=== PATIENT | female | born 1950 | race Caucasian/White ===

== ENCOUNTER → 2023-01-30 | Outpatient (CLI) | payer BC, SELFPAY ==
[2023-01-30 08:52] VITALS: PULSE 100; PULSE 81; PULSE 82; PULSE 90; PULSE 93; PULSE 94; PULSE 95; PULSE 99; O2SAT 78; O2SAT 88; O2SAT 90; O2SAT 91; O2SAT 92; O2SAT 96
--- NOTE | 2023-01-30 09:05 | CPS ---
Patient was 78% on room air while sitting. Placed patient on 2 lpm nasal cannula, SpO2 increased to 90%. After several minutes SpO2 never went greater than 90-91% while sitting so turned flow up to 3 lpm for walking. SpO2 95% on 3 lpm before starting testing. Patient was able to walk over 1000 ft during the 6 minutes maintaining an SpO2 >89% until right when the test ended. SpO2 87-88% at the end of the 6 minute walking on 3 lpm O2.
--- NOTE | 2023-02-01 07:30 | WT_ITS ---
PSN 6 Minute Walk Test 6 Minute Walk Test 6 Minute Walk Test: 6 Minute Walk Test PSN:6-Minute Walk Test Start: 01/30/23 08:52 Freq: Status: Active Protocol: [id number] Document 01/30/23 08:52 RUBEN (Rec: 01/30/23 09:09 RUBEN [id number]) 6 Minute Walk Test Date Performed 01/30/23 Time Performed 08:30 Height 5 ft 4 in Weight: 48.081 kg Weight in Pounds 106.[address]: Clinton Rodríguez Assistive device used: None Pre-test Oxygen Delivery Method Room Air Pulse Ox 78 Pulse Rate (60-100) 82 Dyspnea Jerri Scale (0-10) 0 Exertion Jerri Scale (6-20) 6 1st minute Oxygen Flow Rate (L/min) 3 Oxygen Delivery Method Nasal Cannula Pulse Ox 92 Pulse Rate (60-100) 90 2nd minute Oxygen Flow Rate (L/min) 3 Oxygen Delivery Method Nasal Cannula Pulse Ox 90 Pulse Rate (60-100) 93 3rd minute Oxygen Flow Rate (L/min) 3 Oxygen Delivery Method Nasal Cannula Pulse Ox 90 Pulse Rate (60-100) 94 4th minute Oxygen Flow Rate (L/min) 3 Oxygen Delivery Method Nasal Cannula Pulse Ox 90 Pulse Rate (60-100) 95 5th minute Oxygen Flow Rate (L/min) 3 Oxygen Delivery Method Nasal Cannula Pulse Ox 91 Pulse Rate (60-100) 99 6th minute Oxygen Flow Rate (L/min) 3 Oxygen Delivery Method Nasal Cannula Pulse Ox 88 Pulse Rate (60-100) 100 Dyspnea Jerri Scale (0-10) 3 Exertion Jerri Scale (6-20) 13 Post-test Oxygen Flow Rate (L/min) 3 Oxygen Delivery Method Nasal Cannula Pulse Ox 96 Pulse Rate (60-100) 81 Full Laps Walked 18 Partial Lap, Number of Tiles Walked 16 Total Distance Walked (ft) 1078 01/30/23 09:05 Cardiopulmonary Services by Jackelin Fields Patient was 78% on room air while sitting. Placed patient on 2 lpm nasal cannula, SpO2 increased to 90%. After several minutes SpO2 never went greater t cottrell 90-91% while sitting so turned flow up to 3 lpm for walking. SpO2 95% on 3 lpm before starting testing. Patient was able to walk over 1000 ft during the 6 minutes maintaining an SpO2 >89% until right when the test ended. SpO2 87-88% at the end of the 6 minute walking on 3 lpm O2. Initialized on 01/30/23 09:05 - END OF NOTE Interpretation Interpretation: The patient was noted to be 78% on room air at rest. The patient was placed on 2 L/min with an improvement to 90% at rest. However, with minimal exertion, patient had to be placed on 3 L nasal cannula to achieve a saturation of 95%. Patient then started ambulating and was able to travel 10 78 feet over the course of 6 minutes with no assistive devices or breaks. Recommendations Recommendations: The patient requires 2 L/min at rest and should be increased up to at least 3 L/min with any exertion.
== END | disposition home or self-care (01) ==
PROVIDERS: PCP Family Medicine; Referring Provider Internal Medicine Critical Care Medicine; Visit Provider Internal Medicine Critical Care Medicine
DX: R06.09 Other forms of dyspnea (principal)
CPT/HCPCS: 94618

== ENCOUNTER → 2023-02-01 | Outpatient (CLI) | payer MEDICARE, SELFPAY ==
--- NOTE | 2023-02-04 08:26 | PFT ---
INTRODUCTION: The patient is a 72-year-old female who presents for pulmonary function studies secondary to a diagnosis of dyspnea. Respiratory therapy reported good patient effort. Bronchodilators were used during testing. INTERPRETATION: Forced expiration spirometry demonstrates the presence of a severe large airways obstructive ventilatory defect. There was no significant response to aerosolized bronchodilators. Spirograms are of good quality but do not plateau indicating slow emptying of the lungs. Body plethysmography was performed and revealed an elevated TLC and RV, indicative of underlying hyperinflation and air trapping. Diffusing capacity by single breath CO was reduced to 41% of predicted. IMPRESSION: Irreversible severe large airways obstructive ventilatory defect with associated hyperinflation, air trapping and symmetric reduction in diffusing capacity.
== END | disposition home or self-care (01) ==
LOC: PSN 10:58
PROVIDERS: PCP Family Medicine; Referring Provider Internal Medicine Critical Care Medicine; Visit Provider Internal Medicine Critical Care Medicine
DX: R06.09 Other forms of dyspnea (principal)
CPT/HCPCS: 94060; 94726; 94729

== ENCOUNTER → 2023-02-09 | Outpatient (CLI) | payer MEDICARE, SELFPAY ==
--- NOTE | 2023-02-09 08:40 | CT_ITS ---
STUDY: LOW DOSE CT LUNG CANCER SCREENING REASON FOR EXAM: Female, 72 years old. Screening RADIATION DOSAGE (If Supplied By Facility): CTDIvol = ( 2.01 ) mGy, DLP = ( 75.75 ) mGycm TECHNIQUE: No contrast was administered. Low dose technique was utilized (average mAS-38 and kVp 120). 1.25 mm axial source images with a slice interval of 1.25-mm were reconstructed in lung windows. 2.5 mm axial source images with a slice interval of 2.5-mm were reconstructed in lung windows. 5.0 mm axial source images with a slice interval of 5.0-mm were reconstructed in soft tissue windows. COMPARISON: None. Emphysema: Moderate bilateral apical scarring. Mild emphysema. No noncalcified nodule or mass. Endobronchial lesion: None Aorta: Calcified plaque in the aortic arch but no aortic aneurysm. CORONARY ARTERIES: Coronary artery calcification is seen. Heart: No cardiomegaly. Pulmonary artery: Normal Mediastinal nodes: Prominent precarinal lymph node, likely reactive Other chest and abdominal findings: None CT/Low Dose CT Lung Screening IMPRESSION: Lung-RADS category 1 - Continue annual screening with LDCT in 12 months. IMPORTANT NOTES FOR USE: ACR Lung-RADS Version 1.1 Assessment Categories Release Date: 2018 Category: Coded 0-4 bases on nodule(s) with highest degree of suspicion. Negative screen is defined as categories 1 and 2; a positive screen is defined as categories 3 and 4. Category 3 and 4A nodules that are unchanged on interval CT should be coded as category 2, and individuals returned to screening in 12 months. Category 4X: Category 3 or 4 nodules with additional imaging findings that increase the suspicion of lung cancer, such as spiculation, GGN that doubles in size in 1 year, enlarged lymph notes, etc. Category Modifiers: S (significant finding unrelated to lung cancer) Electronically Signed: Guy Webber MD at 22:36 EST ,
== END | disposition home or self-care (01) ==
LOC: CT 08:35
PROVIDERS: PCP Family Medicine; Referring Provider Internal Medicine Critical Care Medicine; Visit Provider Internal Medicine Critical Care Medicine
DX: Z12.2 Encounter for screening for malignant neoplasm of respiratory organs (principal); F17.210 Nicotine dependence, cigarettes, uncomplicated
CPT/HCPCS: 71271

== ENCOUNTER → 2023-04-29 | Outpatient (CLI) | payer MEDICARE, SELFPAY ==
[2023-04-29 16:30] LABS: Rheumatoid Factor 24.6 IU/mL (<15)
[2023-05-01 13:08] LABS: Anti-Centromere B Ab <0.2 AI (0.0-0.9); Anti-Chromatin <0.2 AI (0.0-0.9); Anti-Jo <0.2 AI (0.0-0.9); Anti-Scleroderma-70 AB <0.2 AI (0.0-0.9); Anti-dsDNA Ab 1 IU/mL (0-9); RNP Ab <0.2 AI (0.0-0.9); SJOGREN'S Anti-SS-A test < 0.2 AI (0.0-0.9); SJOGREN'S Anti-SS-B test < 0.2 AI (0.0-0.9); Smith Ab <0.2 AI (0.0-0.9)
[2023-05-01 15:08] LABS: CCP IgG Antibodies 6 units (0-19); Cytoplasmic Ab (C-ANCA) <1:20 titer (Neg:<1:20); Perinuclear Ab (P-ANCA) <1:20 titer (Neg:<1:20)
== END | disposition home or self-care (01) ==
LOC: PAVLAB 14:45
PROVIDERS: PCP Family Medicine; Referring Provider Nurse Practitioner Acute Care; Visit Provider Nurse Practitioner Acute Care
DX: I27.20 Pulmonary hypertension, unspecified (principal)
CPT/HCPCS: 36415; 86200; 86225; 86235; 86256; 86431

== ENCOUNTER → 2023-09-11 | Outpatient (CLI) | payer MEDICARE, SELFPAY ==
--- NOTE | 2023-09-11 09:52 | ECHOL_ITS ---
Reason For Study: PHTN Procedure This was a limited 2D transthoracic echocardiogram. Exam performed in department. Left Ventricle Normal LV size. The estimated ejection fraction is 65 %. No regional wall motion abnormalities noted. Right Ventricle Normal RV size. Normal systolic function. Atria Normal left atrium. Normal right atrium. Mitral Valve Normal mitral valve. Tricuspid Valve Normal tricuspid valve. Moderate (2+) tricuspid valve insufficiency. Pulmonary artery systolic pressure is 55 mmHg. Aortic Valve Trisinus/trileaflet aortic valve. Pulmonic Valve Normal pulmonic valve. Great Vessels Normal aortic root. The pulmonary artery is normal size. Normal inferior vena cava. Pericardium/Pleural No pericardial effusion. MMode/2D Measurements & Calculations LVIDd: 4.4 cm IVSd: 0.77 cm LVAd ap4: 18.6 cm2 LVIDs: 2.8 cm LVPWd: 0.78 cm LVLd ap4: 5.8 cm FS: 36.0 % EDV(MOD-sp4): 49.3 ml EDV(sp4-el): 50.8 ml LVAs ap4: 9.4 cm2 LVLs ap4: 4.4 cm ESV(MOD-sp4): 16.7 ml ESV(sp4-el): 16.9 ml EF(MOD-sp4): 66.1 % EF(sp4-el): 66.8 % SV(MOD-sp4): 32.6 ml SV(sp4-el): 33.9 ml Doppler Measurements & Calculations PA V2 max: 97.6 cm/sec TR max kathy: 356.0 cm/sec TR max P.7 mmHg ECHO/Echo, Limited Study Interpretation Summary Normal LV size. The estimated ejection fraction is 65 %. Moderate (2+) tricuspid valve insufficiency. Pulmonary artery systolic pressure is 55 mmHg. Ordering Physician: Clinton Rodríguez Referring Physician: Jessica Angelo Performed By: Erica Huerta RVT, RDCS and Student
== END | disposition home or self-care (01) ==
LOC: CVS 09:51
PROVIDERS: PCP Family Medicine; Visit Provider Internal Medicine Critical Care Medicine
DX: I27.20 Pulmonary hypertension, unspecified (principal)
CPT/HCPCS: 93308

== ENCOUNTER → 2024-02-19 | Outpatient (CLI) | payer MEDICARE, SELFPAY ==
--- NOTE | 2024-02-19 08:01 | CT_ITS ---
EXAM: CT CHEST, LUNG CANCER SCREENING WITHOUT INTRAVENOUS CONTRAST CLINICAL INDICATION: smoker TECHNIQUE: Helically acquired images were obtained of the chest without intravenous contrast using low dose (LDCT) lung cancer screening protocol. This CT exam was performed using one or more of the following dose reduction techniques: automated exposure control, adjustment of the mA and/or kV according to patient size, and/or use of iterative reconstruction technique. COMPARISON: CT Lung Cancer Screening dated 02/10/2023 FINDINGS: LUNGS AND PLEURAL SPACES: Interval development of right middle lobe atelectasis with air bronchograms outlining an element of diffuse bronchiectasis. No evidence of central endobronchial mass lesion. The diffuse centrilobular emphysematous changes of the lungs and a post inflammatory changes of both lung apices again noted without interval change. No pleural effusion or thickening. HEART: Stable normal heart size. Prominent coronary artery calcification again seen. No pericardial effusion. MEDIASTINUM: Stable mildly enlarged mediastinal lymph nodes. Esophagus is unremarkable. No hiatal hernia. THYROID: Normal. No thyroid nodules or calcification. BONES/JOINTS: No suspicious lytic or blastic abnormality. VASCULATURE: No aortic aneurysm. LYMPH NODES: See above. CT/Low Dose CT Lung Screening IMPRESSION: Interval development of right middle lobe atelectasis with air bronchograms outlining an element of diffuse bronchiectasis. No evidence of central endobronchial mass lesion. Lung-RADS score: 0S - Incomplete. Additional clinically significant or potentially clinically significant findings are described. Additional lung cancer screening CT images are needed. Recommendations: Follow-up CT study in 4-6 months recommended following treatment for the right middle lobe atelectasis. Electronically Signed: Tariq Parry MD at 8:21 EST ,
== END | disposition home or self-care (01) ==
PROVIDERS: PCP Family Medicine; Referring Provider Nurse Practitioner Acute Care; Visit Provider Nurse Practitioner Acute Care
DX: Z12.2 Encounter for screening for malignant neoplasm of respiratory organs (principal); F17.210 Nicotine dependence, cigarettes, uncomplicated
CPT/HCPCS: 71271

== ENCOUNTER → 2024-03-03 | Outpatient (CLI) | payer MEDICARE, SELFPAY | END | disposition home or self-care (01) | PROVIDERS: PCP Family Medicine; Referring Provider Nurse Practitioner Family; Visit Provider Nurse Practitioner Family | DX: J47.9 Bronchiectasis, uncomplicated (principal) | CPT/HCPCS: 94667 ==

== ENCOUNTER → 2024-03-26 | Outpatient (CLI) | payer MEDICARE, SELFPAY | END | disposition home or self-care (01) | PROVIDERS: PCP Family Medicine; Referring Provider Nurse Practitioner Family; Visit Provider Nurse Practitioner Family | DX: J47.9 Bronchiectasis, uncomplicated (principal) | CPT/HCPCS: 87070; 87205 ==

== ENCOUNTER → 2024-04-06 | Outpatient (CLI) | payer MEDICARE, SELFPAY | END | disposition home or self-care (01) | LOC: PSN 12:02 | PROVIDERS: PCP Family Medicine; Referring Provider Nurse Practitioner Family; Visit Provider Nurse Practitioner Family | DX: J44.9 Chronic obstructive pulmonary disease, unspecified (principal) | CPT/HCPCS: 94060; 94726; 94729 ==

== ENCOUNTER → 2024-06-12 | Outpatient (CLI) | payer MEDICARE, SELFPAY ==
--- NOTE | 2024-06-12 11:43 | CT_ITS ---
PROCEDURE: CHEST WITHOUT CONTRAST ([facility]), 06/12/2024 REASON FOR EXAM: BRONCHIECTASIS, COPD TECHNIQUE: CT chest was performed without IV contrast. Multiplanar reformats were generated. RADIATION DOSE SUMMARY: CTDlvol: 6.24 mGy DLP: 232.26 mGycm One or more dose reduction techniques were used (e.g., Automated exposure control, adjustment of the mA and/or kV according to patient size, use of iterative reconstruction technique). COMPARISON: 02/19/2024 ; note that images only are available for review, the report is not available at the time of the dictation. FINDINGS: Note that evaluation of the vasculature, tanner, and soft tissues is limited in the absence of IV contrast. Mild motion limitation through the lung bases. Heart/pericardium: Moderate to advanced multivessel coronary atherosclerosis and/or stents. Trace aortic annular calcification. Aorta: Advanced calcific atherosclerosis. Pulmonary arteries: Normal in caliber. Lymph nodes: Precarinal node, 14 mm short axis, similar to prior, increased from 12 mm 02/09/2023. Lungs/pleura: Emphysema. Biapical pleural/parenchymal scarring. Dependent atelectasis/scarring. Similar to minimally increased RIGHT middle lobe now lobar atelectasis/collapse, again with air bronchograms. New 6 mm superior segment LEFT lower lobe nodule (series 4 image 54). New subpleural 4 mm RIGHT lower lobe nodule posteriorly (image 54). Few additional smaller bilateral lower lobe and RIGHT upper lobe nodules are also new, advertising representative examples are annotated on series 4. A 3 mm LEFT lower lobe nodule on image 96 is unchanged. Airways: Focus of mucous plugging in the RIGHT lower lobe, also present previously.. Chest wall: Cachectic. Upper abdomen: Suboptimally evaluated due to photon starvation. Nodular low- density thickening of the LEFT adrenal is probably similar to prior exams, typically hyperplasia. Atherosclerosis. Musculoskeletal: Demineralization. Lower cervical spondylosis. Partially imaged lumbar spinal fusion and laminectomy. CT/Chest without Contrast IMPRESSION: 1. Emphysema with small new pulmonary nodules up to 6 mm in the LEFT lower lobe compared with 02/19/2024 as detailed. Given reported history of melanoma, metastasis can not be excluded. Additionally, in light of a history of known malignancy, the Fleischner Society recommendations for pulmonary nodule follow-up can not be ap plied. Recommend close clinical/oncologic follow-up. Consider CT chest in 3 months as these may be too small for resolut ion on PET/CT. 2. Mild mediastinal lymphadenopathy, similar to prior but increased from 2022, nonspecific. Attention on follow-up recommended. 3. Similar to minimally increased now lobar consolidation/collapse of the RIGHT middle lobe may reflect atelectasis with or without superimposed pneumonia, potentially chronic. Central obstructing proce ss is considered less likely given that the bronchial tree appears patent. 4. Additional description as above. Reading Location: [id number]
== END | disposition home or self-care (01) ==
LOC: CT 11:40
PROVIDERS: PCP Family Medicine; Referring Provider Nurse Practitioner Family; Visit Provider Nurse Practitioner Family
DX: J47.9 Bronchiectasis, uncomplicated (principal)
CPT/HCPCS: 71250

== ENCOUNTER → 2024-09-18 | Outpatient (CLI) | payer MEDICARE, SELFPAY ==
--- NOTE | 2024-09-18 16:54 | CT_ITS ---
PROCEDURE: CHEST WITH CONTRAST 09/18/2024 REASON FOR EXAM: MULTIPLE PULMONARY NODULES, CURRENT SMOKER TECHNIQUE: CHEST WITH CONTRAST Coronal and Sagittal reconstruction series were provided. CONTRAST: Isovue 370 VOLUME: 100 mL One or more dose reduction techniques were used (e.g., Automated exposure control, adjustment of the mA and/or kV according to patient size, use of iterative reconstruction technique). RADIATION DOSE SUMMARY: CTDlvol: 20.41 mGy DLP: 217.78 mGycm COMPARISON: 06/12/2024 FINDINGS: Lung windows show underlying emphysema with nonspecific pleural thickening in both apices and both hemithoraces. No organized infiltrate or effusion. There are stable subcentimeter noncalcified nodules measuring up to 4 mm. There is evidence of chronic bronchitis, and scattered opacifications suggesting pneumonitis. Normal-appearing thyroid gland. No suspicious axillary, mediastinal or perihilar adenopathy. There are calcified coronary vessels. There are peripheral calcifications in the thoracic aorta without aneurysm.. Limited cuts of the upper abdomen do not show a suspicious abnormality. Bony structures show degenerative change, surgical hardware in the lumbar spine free of complication CT/Chest WITH Contrast IMPRESSION: Coronary artery calcification (CAC) is is present Underlying emphysema with stable noncalcified nodules measuring up to 4 mm in g reatest dimension. Another year follow-up is recommended to assess stability. No organized infiltrate or effusion, there is evidence of chronic bronchitis an d pneumonitis. Degenerative bony changes Reading Location: [id number]
== END | disposition home or self-care (01) ==
LOC: CT 16:48
PROVIDERS: PCP Family Medicine; Referring Provider Nurse Practitioner Family; Visit Provider Nurse Practitioner Family
DX: R91.8 Other nonspecific abnormal finding of lung field (principal)
CPT/HCPCS: 71260; Q9967